=== PATIENT | female | born 1980 | race Two or more races ===

== ENCOUNTER 2019-01-21 19:07 | Inpatient (IN) | payer SELFPAY ==
[~2019-01-21] VITALS: Ht 152.4 cm; Wt 86.0 kg
[2019-01-21] MEDS ORDERED: NALBUPHINE 10 MG/ML AMPUL. IV PRN (19:30)
[2019-01-21] MEDS ORDERED: ACETAMINOPHEN 325 MG TABLET. PO PRN (19:30)
[2019-01-21] MEDS ORDERED: DINOPROSTONE 10 MG SUPP.VAG VG ONE (19:30)
[2019-01-21] MEDS ORDERED: CITRIC ACID/SODIUM CITRATE 30 ML SOLUTION. PO PRN (19:30)
[2019-01-21] MEDS ORDERED: 0.9 % SODIUM CHLORIDE 10 ML DISP.SYRIN. IV PRN (19:30)
[2019-01-21] MEDS ORDERED: LIDOCAINE 1% PF 30 ML VIAL. INJ PRN (19:30)
[2019-01-21] MEDS ORDERED: MAG HYDROX/ALUMINUM HYD/SIMETH 30 ML ORAL.SUSP PO PRN (19:30)
[2019-01-21] MEDS ORDERED: ONDANSETRON PF 4 MG/2 ML VIAL. IV PRN (19:30)
[2019-01-21] MEDS ORDERED: BUTORPHANOL 2 MG/ML VIAL. IV PRN ×2 (19:30)
[2019-01-21] MEDS ORDERED: DOCUSATE SODIUM 283 MG/5 ML ENEMA. PR PRN (19:30)
[2019-01-21] MEDS ORDERED: TERBUTALINE 1 MG/ML VIAL. SQ PRN (19:30)
[2019-01-21] MEDS ORDERED: fentaNYL PF VIAL 100 MCG/2 ML VIAL IV PRN ×2 (19:30)
[2019-01-21] MEDS ORDERED: OXYTOCIN 30 UNIT/500 ML PREMIX 500 ML IV PRN (19:30)
[2019-01-21 19:33] VITALS: BP 120/74
[2019-01-21] MEDS: IV RINGERS,LACTATED 1000ML 1,000 ML IV SCH ×2 (19:50→23:10)
[2019-01-21 20:03] LABS: BASO # 0.1 x10^3/uL (0.0-0.2); BASO % 1 % (0-3); EOS # 0.1 x10^3/uL (0.0-0.7); EOS % 1 % (0-3); HEMATOCRIT 34.3 % (36.0-47.0); HEMOGLOBIN 11.6 g/dL (12.0-15.5); LYMPH % 22 % (24-48); MEAN CORPUSCULAR HEMOGLOBIN 31 pg (25-35); MEAN CORPUSCULAR HGB CONC 34 g/dL (31-37); MEAN CORPUSCULAR VOLUME 93 fL (79-100); MONO # 0.5 x10^3/uL (0.0-1.1); MONO % 6 % (0-9); NEUT # 6.4 x10^3uL (1.8-7.7); NEUT % 70 % (31-73); PLATELET COUNT 288 x10^3/uL (140-400); RED CELL DISTRIBUTION WIDTH 14.3 % (11.5-14.5); WHITE BLOOD COUNT 9.1 x10^3/uL (4.0-11.0)
[2019-01-21 20:06] LABS: BILIRUBIN,URINE NEGATIVE (NEG); CLARITY,URINE CLEAR; COLOR,URINE YELLOW; NITRITE,URINE NEGATIVE (NEG); PH,URINE 6.5; PROTEIN,URINE NEGATIVE (NEG-TRACE)
[2019-01-21 20:13] LABS: BACTERIA,URINE MODERATE /HPF (0-FEW); RBC,URINE 0 /HPF (0-2); SQUAMOUS EPITHELIAL CELL,UR MOD /LPF
--- NOTE | 2019-01-22 00:21 | RAD ---
Obstetrical ultrasound limited. HISTORY: Verify position Obstetrical ultrasound showed a single fetus in cephalic position. The heart beat was noted with a rate of 132 bpm. Placenta is posterior without previa. survey was not performed. Biparietal diameter 9.3 cm corresponding 37 weeks 6 days, head circumference 33.6 cm corresponding to 38 weeks 4 days, abdominal circumference 33.2 cm corresponding 37 weeks 1 day, femur length 7.6 cm corresponding to 38 weeks 4 days. Estimated gestational age 38 weeks estimated weight 3290 g. There was a normal amount of amniotic fluid. IMPRESSION: 1. Viable fetus 38 weeks gestational age by ultrasound. 2. Fetus in cephalic position. Electronically signed by: Brian Ochoa MD (01/22/2019 12:18 AM) [id number]
[2019-01-22] MEDS ORDERED: OXYTOCIN 30 UNIT/500 ML PREMIX 500 ML IV PRN ×2 (06:00→17:45)
[2019-01-22] MEDS: IV RINGERS,LACTATED 1000ML 1,000 ML IV SCH ×2 (06:56→13:30)
--- NOTE | 2019-01-22 08:08 | PDOC1 ---
OB - History Hx of Present Care: Good Care Ultrasounds: Normal mid trimester US Obstetrical Complications: None Medical Complications: None Past Family/Social History * Past Medical, Surgical, Family and Obstetric Histories reviewed from chart. Rubella: Immune RPR/VDRL: Negative GBS Status: Negative HBsAG: Negative OB - Chief Complaint & HPI Date of Admission: Date of Admission: January 21, 2019 at 19:07 Chief Complaint/History : 4 Para: 3 EGA: 39 Reason for admission: induction of labor Indication for induction: maternal discomfort Admission Nurse Assessment Rev: Yes OB - Admission Exam Physical Exam Vitals: VS - Last 72 Hours, by Label Date Time Temp Pulse Resp B/P (MAP) Pulse Ox O2 Delivery O2 Flow Rate FiO2 01/21/19 19:33 98.1 73 20 120/74 (89) Room Air 98.1 HEENT: Normal Heart: Regular Rate Lungs: Clear Abdomen: Gravid, Non tender, Soft Extremities: Edema Reflexes: Normal Cervical Dilatation: 2cm Effacement: 50% Station: -3 Membranes: Intact Heart Rate: Normal Accelerations: Accelerations Present Decelerations: No decelerations Contractions on Admission: None Text A: 39 wks IUP IOL secondary discomforts preganancy P: Admit for IOL cervidil, then pitocin. MINE SAHNI Jr, MD January 22, 2019 08:08
[2019-01-22] MEDS ORDERED: L&D EPIDURAL SYRINGE 0 ML ONE (16:49)
[2019-01-22] MEDS ORDERED: LIDOCAINE 2% PF 5 ML VIAL. ONE (17:09)
[2019-01-22] MEDS ORDERED: LIDOCAINE 1% PF 2 ML VIAL. ONE ×2 (17:10)
[2019-01-22] MEDS ORDERED: ROPIVacaine 0.2% PF 10 ML VIAL. ONE (17:24)
[2019-01-22] MEDS ORDERED: BUPIVACAINE MPF 0.25% 30 ML VIAL. EPID PRN (17:30)
[2019-01-22] MEDS ORDERED: L&D EPIDURAL CASSETTE 100 ML EPID PRN (17:30)
[2019-01-22] MEDS ORDERED: IV RINGERS,LACTATED 1000ML 1,000 ML IV SCH (17:30)
[2019-01-22] MEDS ORDERED: NALOXONE 0.4 MG/ML VIAL. IV PRN (17:30)
[2019-01-22] MEDS ORDERED: L&D EPIDURAL SYRINGE 50 ML EPID PRN (17:30)
[2019-01-22] MEDS ORDERED: ROPIVacaine 0.2% PF 10 ML VIAL. EPID PRN (17:30)
[2019-01-22] MEDS ORDERED: fentaNYL PF VIAL 100 MCG/2 ML VIAL EPI PRN (17:30)
--- NOTE | 2019-01-22 17:44 | PDOC ---
VAGINAL DELIVERY DATE DATE: 01/22/19 TIME: 17:43 : 4 Para: 4 EGA: 39 VAGINAL DELIVERY: VTX VACCUM ASSISTED: No PLACENTA: Spontaneous 9/9 SEX: Male WEIGHT Weight [ 3000 gm] Nuchal Cord: No Amniotic Fluid: Clear PAIN: Epidural EPISIOTOMY: No EXTENSION: Yes (1st degree midline laceration; hemostatic) REPAIRED WITH none EBL 300 ml COMPLICATIONS none CONDITION pt. stable Signs of Intrauterine Infectio: None Shoulder Dystocia: No MINE SAHNI Jr, MD January 22, 2019 17:44
[2019-01-22] MEDS ORDERED: IBUPROFEN 400 MG TABLET. PO PRN (17:45)
[2019-01-22] MEDS ORDERED: MMR per PROTOCOL. MC PRN (17:45)
[2019-01-22] MEDS ORDERED: BENZOCAINE 20% TOPICAL AEROSOL SPRAY 57GM CAN. TP PRN (17:45)
[2019-01-22] MEDS ORDERED: MAG HYDROX/ALUMINUM HYD/SIMETH 30 ML ORAL.SUSP PO PRN (17:45)
[2019-01-22] MEDS ORDERED: diphenhydrAMINE HCL 25 MG CAPSULE PO PRN (17:45)
[2019-01-22] MEDS ORDERED: ZOLPIDEM 5 MG TABLET. PO PRN (17:45)
[2019-01-22] MEDS ORDERED: 0.9 % SODIUM CHLORIDE 10 ML DISP.SYRIN. IV PRN (17:45)
[2019-01-22] MEDS ORDERED: PHENYLEPH/MINERAL OIL/PETROLAT RECTAL OINTMENT 28GM TUBE. RC PRN (17:45)
[2019-01-22] MEDS ORDERED: ACETAMINOPHEN 325 MG TABLET. PO PRN (17:45)
[2019-01-22] MEDS ORDERED: MAGNESIUM HYDROXIDE 2,400 MG/30 ML ORAL.SUSP. PO PRN (17:45)
[2019-01-22] MEDS ORDERED: oxyCODONE/APAP 5/325 1 TAB TABLET PO PRN (17:45)
[2019-01-22] MEDS ORDERED: HYDROCORTISONE 1% TOPICAL OINTMENT 30GM TUBE. TP PRN (17:45)
[2019-01-22] MEDS ORDERED: SIMETHICONE 80 MG TAB.CHEW PO PRN (17:45)
[2019-01-22] MEDS: IBUPROFEN 400 MG TABLET. PO PRN (21:14)
[2019-01-22 21:15] VITALS: BP 142/87
[2019-01-22 21:30] VITALS: BP 95/55
[2019-01-22 22:30] VITALS: BP 108/63
[2019-01-23] MEDS: IBUPROFEN 400 MG TABLET. PO PRN (05:18)
[2019-01-23 06:05] LABS: BASO # 0.1 x10^3/uL (0.0-0.2); BASO % 0 % (0-3); EOS # 0.1 x10^3/uL (0.0-0.7); EOS % 1 % (0-3); HEMATOCRIT 30.1 % (36.0-47.0); HEMOGLOBIN 10.3 g/dL (12.0-15.5); LYMPH # 2.3 x10^3/uL (1.0-4.8); LYMPH % 17 % (24-48); MEAN CORPUSCULAR HEMOGLOBIN 32 pg (25-35); MEAN CORPUSCULAR HGB CONC 34 g/dL (31-37); MEAN CORPUSCULAR VOLUME 94 fL (79-100); MONO # 0.7 x10^3/uL (0.0-1.1); MONO % 5 % (0-9); NEUT # 10.6 x10^3uL (1.8-7.7); NEUT % 77 % (31-73); PLATELET COUNT 233 x10^3/uL (140-400); RED BLOOD COUNT 3.21 x10^6/uL (3.50-5.40); RED CELL DISTRIBUTION WIDTH 14.3 % (11.5-14.5); WHITE BLOOD COUNT 13.8 x10^3/uL (4.0-11.0)
[2019-01-23 06:27] VITALS: BP 95/58
[2019-01-23] MEDS ORDERED: FERROUS SULFATE 325 MG TABLET. PO SCH (08:00)
[2019-01-23 08:25] VITALS: BP 98/56
[2019-01-23] MEDS: DOCUSATE SODIUM 100 MG CAPSULE. PO PRN (10:21)
[2019-01-23 13:54] VITALS: BP 98/55
--- NOTE | 2019-01-23 14:28 | PDOC ---
Provider Note Provider Note Doing well VSS Uterus NTTP FU in AM NIRALI SALEEM MD January 23, 2019 14:28
[2019-01-23 20:00] VITALS: BP 116/70
[2019-01-24 05:42] VITALS: BP 98/53
--- NOTE | 2019-01-24 08:12 | PDOC3 ---
OB DISCHARGE SUMMARY DATE OF ADMISSION: 01/22/19 DATE OF DISCHARGE: 01/24/19 REASON FOR ADMISSION: Induction of labor INTRAPARTUM PROCEDURES: Spontanous Vag Deliv DISCHARGE DIAGNOSIS: Term Delivered DISCHARGE INFORMATION: Activity (ad lucila), Diet (regular), Instructions (pelvic rest x 6 wks) HOSPITAL COURSE Term gestation delivered vaginally without complications. MINE SAHNI Jr, MD January 24, 2019 08:12
[2019-01-24] MEDS ORDERED: IBUP-1027 PO (08:14)
--- NOTE | 2019-01-24 08:14 | DISCH ---
DISCHARGE INSTRUCTIONS Condition on Discharge Condition on Discharge: Stable Activity After Discharge Activity Instructions for Disc: Activity as tolerated Lifting Instructions after Dis: No heavy lifting Driving Instructions after Dis: Do not drive today Diet after Discharge Diet after Discharge: Regular Contacting the DRStephanie after DC Call your doctor for: Concerns you may have Follow-Up Follow up with: Tyler in 6 wks MINE SAHNI Jr, MD January 24, 2019 08:14
[2019-01-24 10:30] VITALS: BP 99/56
[2019-01-24] MEDS: DOCUSATE SODIUM 100 MG CAPSULE. PO PRN (11:48)
[2019-01-24 14:30] VITALS: BP 116/68
== END 2019-01-24 15:17 | disposition home or self-care (01) | DRG 807 ==
LOC: 3 SO LND 19:07 → 3 NORTH 01-22 21:30
PROVIDERS: ADMIT Obstetrics & Gynecology; ATTEND Obstetrics & Gynecology
PROC: 10E0XZZ Delivery of Products of Conception, External Approach (ICD-10-PCS; principal; 2019-01-22)
PROC: 0HQ9XZZ Repair Perineum Skin, External Approach (ICD-10-PCS; 2019-01-22)
PROC: 3E0R3BZ Introduction of Anesthetic Agent into Spinal Canal, Percutaneous Approach (ICD-10-PCS; 2019-01-22)
PROC: 00HU33Z Insertion of Infusion Device into Spinal Canal, Percutaneous Approach (ICD-10-PCS; 2019-01-22)
PROC: 3E0P7VZ Introduction of Hormone into Female Reproductive, Via Natural or Artificial Opening (ICD-10-PCS; 2019-01-22)
DX: O70.0 First degree perineal laceration during delivery (principal); Z37.0 Single live birth; Z3A.39 39 weeks gestation of pregnancy
CPT/HCPCS: 36415; 76815; 81001; 85025; 86592; 86850; 86900; 86901; 87086; J2001; J2590; J2795; J3010; J7120